=== PATIENT | female | born 1950 | race Caucasian/White ===

== ENCOUNTER → 2017-04-10 | Outpatient (CLI) | payer MEDICARE, OTHER ==
--- NOTE | 2017-04-10 16:28 | REPMRS ---
Patient History The patient states she has not had a clinical breast exam in over a year. Patient is postmenopausal. No known family history of cancer. Benign excisional biopsy of the left breast. Took unspecified hormones for 10 years. Digital Woman Screen Mammo: April 10, 2017 - Exam #: [id number] Bilateral CC and MLO view(s) were taken. Technologist: Crista Small, Technologist Prior study comparison: April 09, 2016, digital woman screen mammo performed at [facility]. March 27, 2015, digital woman screen mammo performed at [facility]. March 23, 2014, bilateral bilat screen digital mammo, performed at [facility] ([facility]). FINDINGS: There are scattered fibroglandular densities. There has been no change in the appearance of the mammogram from the prior studies. There is a mild amount of scattered fibroglandular density which is fairly symmetric. There is no interval development of dominant mass, architectural distortion, or clustered microcalcification suggestive of malignancy. ASSESSMENT: BI-RADS/ACR category 1 mammogram. Negative. Recommendation Routine screening mammogram in 1 year (for women over age 40). This mammogram was interpreted with the aid of an FDA-approved computer-aided dectection system. Electronically Signed By: James Myers MD 04/10/17 [id number]
== END ==
LOC: M WHC 14:57
PROVIDERS: ATTEND Family Medicine
DX: Z12.31 Encounter for screening mammogram for malignant neoplasm of breast (principal); Z78.0 Asymptomatic menopausal state; Z92.23 Personal history of estrogen therapy

== ENCOUNTER → 2017-12-18 | Outpatient (REF) | payer MEDICARE, OTHER | LOC: M LAB REF 13:04 | DX: N76.0 Acute vaginitis (principal) | CPT/HCPCS: 87077 ==

== ENCOUNTER → 2020-07-04 | Outpatient (CLI) | payer MEDICARE, OTHER ==
[~2020-07-04] MED LIST: ATOR1TAB19 PO; CALCCAP4 PO; CYAN100049 PO; GNP200TA4 PO; SERT25TA21 PO
[2020-07-04 14:23] LABS: BASO % 0.3 % (0.0-1.0); EOS # 0.1 10^3/uL (0.0-0.5); EOS % 0.9 % (0.0-3.0); HEMATOCRIT 41.6 % (36.0-47.0); HEMOGLOBIN 13.4 g/dl (12.0-15.5); LYMPH # 1.1 10^3/uL (1.5-5.0); LYMPH % 12.2 % (24.0-44.0); MEAN CORPUSCULAR HEMOGLOBIN 30.5 pg (27.0-33.0); MEAN CORPUSCULAR HGB CONC 32.2 g/dl (32.0-36.5); MEAN CORPUSCULAR VOLUME 94.5 fl (80.0-96.0); MONO # 0.6 10^3/uL (0.0-0.8); MONO % 6.4 % (0.0-5.0); NEUTROPHILS # 7.3 10^3/uL (1.5-8.5); NEUTROPHILS % 80.1 % (36.0-66.0); PLATELET COUNT, AUTOMATED 244 10^3/uL (150-450); WHITE BLOOD COUNT 9.1 10^3/uL (4.0-10.0)
[2020-07-04 14:48] LABS: ALBUMIN 3.8 GM/DL (3.2-5.2); ALT/SGPT 25 U/L (12-78); BILIRUBIN,TOTAL 0.4 MG/DL (0.2-1.0); BLOOD UREA NITROGEN 16 MG/DL (7-18); CARBON DIOXIDE LEVEL 33 MEQ/L (21-32); CHLORIDE LEVEL 106 MEQ/L (98-107); CREATININE FOR GFR 0.74 MG/DL (0.55-1.30); GLOMERULAR FILTRATION RATE > 60.0 (>45); GLUCOSE, FASTING 104 MG/DL (70-100); POTASSIUM SERUM 3.6 MEQ/L (3.5-5.1); SODIUM LEVEL 143 MEQ/L (136-145)
== END ==
LOC: M LAB 14:04
PROVIDERS: ATTEND Podiatrist
DX: M20.42 Other hammer toe(s) (acquired), left foot (principal); M79.672 Pain in left foot

== ENCOUNTER → 2020-07-08 | Outpatient (CLI) | payer MEDICARE, OTHER | LOC: M LABSMTC 09:10 | PROVIDERS: ATTEND Anesthesiology | DX: Z01.812 Encounter for preprocedural laboratory examination (principal); Z20.822 Contact with and (suspected) exposure to COVID-19 ==

== ENCOUNTER 2020-07-13 06:09 | Day surgery (SDC) | payer MEDICARE, OTHER ==
[~2020-07-13] VITALS: Ht 165.1 cm; Wt 78.5 kg
--- OUTSIDE RECORDS SUMMARY | 2020-07-13 06:17 | CCD | Continuity of Care Document ---
Author Author Lab Schedule, Janna Lindsey Organization Unknown Address [address] [place] [address] Phone Unavailable Care Team Providers Care Senior Technical Specialist Name Role Phone Toi Lopez MD AUTM [phone] Gastroenterology And Hepatology [facility] AUTM [phone] Ronnie Kam DO AUTM [phone] [facility]at[facility] Cos[facility] AUTM [phone] Problems Active Problems Provider Date Allergic rhinitis Onset: 06/23/2010 Chronic constipation Onset: 01/07/2009 Palpitations Onset: 01/03/2009 Mixed hyperlipidemia Onset: 10/02/2006 Benign paroxysmal positional vertigo Ons et: Gastroesophageal reflux disease Onset: 0 Osteopenia Onset: Osteoarthritis Onset: Insomnia Onset: Pure hypercholesterolemia Toi Lopez M.D. Onset: 2014 Degenerative joint disease involving multiple joints Toi Lopez M.D. Onset: 05/17/2015 Constipation Toi Lopez M.D. Onset: 05/17/2015 Anxiety state Toi Lopez M.D. Onset: 05/17/2015 Social History Type Date Description Comments Sex Unknown ETOH Use Occasionally consumes alcohol 1 glass of wine every 3 to 4 months Tobacco Use Start: Unknown Patient has never smoked Allergies, Adverse Reactions, Alerts Active Allergies Reaction Severity Comments Date Penicillin hives 11/15/2014 Medications Active Medications SIG Qnty Indications Ordering Provide r Date Proctosol HC 2.5% Cream apply topically three times a day as needed for hemorrhoids 85.05units Phylicia Lopez M.D. 01/11/2020 Triamcinolone Acetonide 0.5% Cream apply twice a day as directed to hands - do not overuse, risk of atropy. 45gm E78.00 Toi Lopez M.D. 12/12/2019 Zolpidem Tartrate 5mg Tablets 1/2 - 1 tab by mouth at at bedtime 30tabs Toi Lopez M.D. 12/2018 Estrace 0.1mg/GM Cream insert 1 gram vaginally every night 2 times a week (use same amount on vulva) 42.500gm Toi Lopez M.D. 11/29/2018 Calcium + D Chewtabs 1 po qd Toi Lopez M.D. 05/17/2015 Atorvastatin Calcium 10mg Tablets 1 by mouth every day 90tabs Toi Lopez M.D. 11/15/2014 Vitamin B-12 1000mcg Tablets Sub 1 by mouth every day Toi Lopez M.D. 11/15/2014 Miralax 3350NF Powder use 17grams daily as needed for constipation in juice or water. 30Oz Toi Lopez M.D. 11/15/2014 Zoloft 25mg Tablets 1 by mouth every day 90tabs H81.10 Toi Lopez M.D. Administration Of Flu Vaccine Inj ection Unknown Medications Administered in Office Medication SIG Qnty Indications Ordering Provider Date Administration Of Flu Vaccine Inj ection Toi Lopez M.D. 03/12/2017 Immunizations CPT Code Status Date Vaccine Lot # U-Flu Given 03/08/2020 Influenza,Unspecified U-Flu Given 03/30/2019 Influenza,Unspecified 87675 Given 11/02/2018 Shingrix Zoster Vaccine (HZV), Recombinant, Subunit, Adjuvanted 04558 Given 08/30/2018 Shingrix Zoster Vaccine (HZV), Recombinant, Subunit, Adjuvanted U-Pneum Given 06/10/2017 Pneumococcal,Unspecified 79801 Given 03/12/2017 Influenza Vaccin e Quadrivalent Preser/Antibiotic Free Im Use [id number] U-PneuC Given 06/08/2016 Prevnar 13 Q2037 Given 03/29/2015 Fluvirin Virus Vaccine 30131 01 87810 Given 03/07/2014 Influenza Virus Vaccine 28999 Given 03/03/2013 Influenza Virus Vaccine 83191 Given 09/01/2012 Adacel- Tetanus Diphtheria P ertussis (Age64 & Under) 03684 Given 02/25/2012 Influenza Virus Vaccine 18497 Given 11/10/2011 Zoster Vaccine 58419 Given 09/17/2011 Zostavax 67536 Given 01/30/2010 Influenza Virus Vaccine Vital Signs Date Vital Result Comment 06/18/2020 3:00pm BP Systolic 116 mmHg BP Diastolic 80 mmHg Heart Rate 78 /min Height 65 inches 5'5" Weight 170.00 lb BMI (Body Mass Index) 28.3 kg/m2 12/12/2019 8:58am BP Systolic 122 mmHg BP Diastolic 66 mmHg Heart Rate 74 /min Height 65 inches 5'5" Weight 170.38 lb O2 % BldC Oximetry 97 % RM Air BMI (Body Mass Index) 28.3 kg/m2 Results Test Acquired Date Facility Test Result H/L Range Note Comprehensive Chem Profile 06/13/2020 [facility] Cro: [place] [address] [phone] Glucose 84 mg/dL 74 - 99 1 BUN 14 mg/dL 7 - 18 Creatinine 0.8 mg/dL 0.6 - 1.3 Sodium 142 mEq/L 136 - 145 Potassium 4.1 mEq/L 3.5 - 5.1 Chloride 104 mEq/L 98 - 107 Carbon Dioxide 33 mEq/L High 21 - 32 Calcium 8.7 mg/dL 8.5 - 10.1 Alk. Phosphatase 133 mg/dL High 46 - 116 Total Bilirubin 0.8 mg/dL 0.2 - 1.0 Ast (Sgot) 19 U/L 15 - 37 Alt (SGPT) 21 U/L 12 - 78 Albumin 3.8 g/dL 3.4 - 5.0 Total Protein 7.2 g/dL 6.4 - 8.2 A/G Ratio 1.12 CALC 1.00 - 1.90 GFR >= 60 mL/min >60 GFR >= 60 mL/min >60 2 Lipid Profile 06/13/2020 [facility] Cro: [place] [address] [phone] Cholesterol 207 mg/dL High 131 - 200 Triglycerides 179 mg/dL High 30 - 150 HDL Cholesterol 60 mg/dL 35 - 60 LDL (Calculated) 111 CALC 50 - 159 1 100-125 mg/dL PRE-DIABET ES/FASTING >126 mg/dL DIABETES/FASTING 2 CHRONIC KIDNEY DISEASE STAGI NG PER NKF STAGE I & II GFR >= 60 NORMAL TO MILDLY DECREASED STAGE III GFR 30-59 MODERATELY DECREASED STAGE IV GFR 15-29 SEVERELY DECREASED STAGE V GFR <15 VERY LITTLE GFR LEFT ESRD GFR <15 ON SALVAGE INSPECTOR Procedures Date Code Description Status 04/17/2020 [id number] Mammogram Completed 06/13/2019 [id number] Bone Mineral Density Test Comple brenden 04/14/2019 [id number] Mammogram Completed 04/14/2018 [id number] Mammogram Completed 11/13/2017 [id number] Diabetic Retinal Eye Exam Comple brenden 04/10/2017 [id number] Mammogram Completed 04/09/2016 [id number] Bone Mineral Density Test Comple brenden 04/09/2016 [id number] Mammogram Completed 04/02/2015 [id number] Diabetic Retinal Eye Exam Comple brenden 03/27/2015 [id number] Mammogram Completed 03/13/2015 [id number] Colonoscopy Completed 03/23/2014 [id number] Bone Mineral Density Test Comple brenden 03/23/2014 [id number] Mammogram Completed Medical Devices Description No Information Available Encounters Description No Information Available Assessments Date Code Description Provider 06/18/2020 E78.00 Pure hypercholesterolemia, unspe cified Toi Lopez M.D. 06/18/2020 F41.9 Anxiety disorder, unspecified Daryl Lopez M.D. 06/18/2020 K21.9 Gastro-esophageal reflux disease without esophagitis Toi Loepz M.D. 06/18/2020 G47.00 Insomnia, unspecified Toi oropeza M.D. 06/18/2020 M15.0 Primary generalized (osteo)arthr itis Toi Lopez M.D. 06/18/2020 K59.00 Constipation, unspecified Toi Lopez M.D. 06/18/2020 J30.9 Allergic rhinitis, unspecified Manny Lopez M.D. 06/18/2020 K64.8 Other hemorrhoids Toi Lopez M.D. 06/13/2020 E78.00 Pure hypercholesterolemia, unspe cified Toi Lopez M.D. 06/13/2020 E78.00 Pure hypercholesterolemia, unspe cified Lab Schedule 05/17/2020 E78.00 Pure hypercholesterolemia, unspe cified Toi Lopez M.D. 05/17/2020 F41.9 Anxiety disorder, unspecified Daryl Lopez M.D. 05/17/2020 K21.9 Gastro-esophageal reflux disease without esophagitis Toi Lopez M.D. 05/17/2020 G47.00 Insomnia, unspecified Toi oropeza M.D. 04/09/2020 E78.00 Pure hypercholesterolemia, unspe cizaida Lopez M.D. 04/09/2020 F41.9 Anxiety disorder, unspecified Daryl Lopez M.D. 04/09/2020 K21.9 Gastro-esophageal reflux disease without esophagitis Toi Lopez M.D. 04/09/2020 G47.00 Insomnia, unspecified Toi oropeza M.D. 02/08/2020 E78.00 Pure hypercholesterolemia, davidpe cizaida Lopez M.D. 02/08/2020 F41.9 Anxiety disorder, unspecified Daryl Lopez M.D. 02/08/2020 K21.9 Gastro-esophageal reflux disease without esophagitis Toi Lopez M.D. 02/08/2020 M15.0 Primary generalized (osteo)arthr itmahi Lopez M.D. 12/28/2019 E78.00 Pure hypercholesterolemia, unspe cizaida Lopez M.D. 12/28/2019 F41.9 Anxiety disorder, unspecified Daryl Lopez M.D. 12/28/2019 K21.9 Gastro-esophageal reflux disease without esophagitis Toi Lopez M.D. 12/28/2019 M15.0 Primary generalized (osteo)arthr itmahi Lopez M.D. Plan of Treatment Future Appointment(s):* 12/14/2020 8:20 am - Lab Schedule at [facility] * 12/17/2020 9:30 am - [facility] 06/18/2020 - Toi Lopez M.D.* E78.00 Pure hypercholesterolemia, unspecified * F41.9 Anxiety disorder, unspecified * K21.9 Gastro-esophageal reflux disease without esophagitis * G47.00 Insomnia, unspecified * M15.0 Primary generalized (osteo)arthritis * K59.00 Constipation, unspecified * J30.9 Allergic rhinitis, unspecified * K64.8 Other hemorrhoids * * Comments:* 1. Hypercholesterolemia: Slightly increased cholesterol and TGs, otherwise good result on Lipitor at the present dose, will continue and monitor.2. Anxiety disorder: Has been doing well at current dose of Zoloft. Discussed about possible weaning off during spring or summer as it could be more stressful withdrawing during winter.3. GERD: Good control of heartburn with regular use of H2 atif and PPI as needed. We will continue to monitor.4. Insomnia: Only once a month use of Ambien, will continue to use as necessary.5. Primary generalized (osteo)arthritis: Aches in her hand appears to be arthritic pain. Regular exercises discussed. Patient is encouraged to take 2 Extra Strength Tylenol daily in the morning along with soaking her hands in warm water in the morning will help to ease her pain. We will monitor.6. Constipation: Continued good results with Miralax with very occasional flares of constipation, encouraged to drink more water. Happy with this and will continue.7. Allergic rhinitis: Education was done. Loratadine helps to improve her symptoms, will continue and monitor.8. Hemorrhoids: Stable with the use of Proctosol as needed, did flare up only at one occasion before Thanksgiving. We will monitor.9. Neck pain: Appears to muscular pain, education was done. She will let me know if her symptoms worsen. We will monitor.10. Increased liver function: Persistently elevated alkaline phosphatase otherwise liver functions are normal.Ongoing cares: We will obtain EKG on her way out for pre-op plans. Patient has an appointment for Covid-19 vaccine and will get it appropriately. I am going to see her again in 6 months with CMP, lipids and TSH;. If she has new problems or issues sooner she will let us know.Planned Surgery: Patient is scheduled for a very low risk toe surgery on July 13, [address] Vega and she appears optimized for this surgery. Functional Status Description No Information Available Mental Status Description No Information Available Referrals Description No Information Available
--- OUTSIDE RECORDS SUMMARY | 2020-07-13 06:17 | CCD | Continuity of Care Document ---
Author Author Janna RAMIREZ M.D. Organization Unknown Address [address] [facility] [address] [place] [address] Phone [phone] Care Team Providers Care Puller Over Name Role Phone Toi Ramirez MD AUTM [phone] Gastroenterology And Hepatology [facility] AUTM [phone] Ronnie Kam DO AUTM [phone] [facility] Dermatology [facility] Cos[facility] AUTM [phone] Problems Active Problems Provider Date Allergic rhinitis Onset: 06/23/2010 Chronic constipation Onset: 01/07/2009 Palpitations Onset: 01/03/2009 Mixed hyperlipidemia Onset: 10/02/2006 Benign paroxysmal positional vertigo Ons et: Gastroesophageal reflux disease Onset: 0 Osteopenia Onset: Osteoarthritis Onset: Insomnia Onset: Pure hypercholesterolemia Toi Ramirez M.D. Onset: 2014 Degenerative joint disease involving multiple joints Toi Ramirez M.D. Onset: 05/17/2015 Constipation Toi Ramirez M.D. Onset: 05/17/2015 Anxiety state Toi Ramirez M.D. Onset: 05/17/2015 Social History Type Date [...] day as needed for hemorrhoids 85.05units Phylicia Ramirez M.D. 01/11/2020 Triamcinolone Acetonide 0.5% Cream apply twice a day as directed to hands - do not overuse, risk of atropy. 45gm E78.00 Toi Ramirez M.D. 12/12/2019 Zolpidem Tartrate 5mg Tablets 1/2 - 1 tab by mouth at at bedtime 30tabs Toi Ramirez M.D. 12/2018 Estrace 0.1mg/GM Cream insert 1 gram vaginally every night 2 times a week (use same amount on vulva) 42.500gm Toi Ramirez M.D. 11/29/2018 Calcium + D Chewtabs 1 po qd Toi Ramirez M.D. 05/17/2015 Atorvastatin Calcium 10mg Tablets 1 by mouth every day 90tabs Toi Ramirez M.D. 11/15/2014 Vitamin B-12 1000mcg Tablets Sub 1 by mouth every day Toi Ramirez M.D. 11/15/2014 Miralax 3350NF Powder use 17grams daily as needed for constipation in juice or water. 30Oz Toi Ramirez M.D. 11/15/2014 Zoloft 25mg Tablets 1 by mouth every day 90tabs H81.10 Toi Ramirez M.D. Administration Of Flu Vaccine Inj ection Unknown Medications Administered in Office Medication SIG Qnty Indications Ordering Provider Date Administration Of Flu Vaccine Inj ection Toi Ramirez M.D. 03/12/2017 Immunizations CPT Code Status Date Vaccine Lot # U-Flu Given 03/08/2020 Influenza,Unspecified U-Flu Given 03/30/2019 Influenza,Unspecified 05200 Given 11/02/2018 Shingrix Zoster Vaccine (HZV), Recombinant, Subunit, Adjuvanted 26540 Given 08/30/2018 Shingrix Zoster Vaccine (HZV), Recombinant, Subunit, Adjuvanted U-Pneum Given 06/10/2017 Pneumococcal,Unspecified 97569 Given 03/12/2017 Influenza Vaccin e Quadrivalent Preser/Antibiotic Free Im Use [id number] U-PneuC Given 06/08/2016 Prevnar 13 Q2037 Given 03/29/2015 Fluvirin Virus Vaccine 26114 01 55549 Given 03/07/2014 Influenza Virus Vaccine 89292 Given 03/03/2013 Influenza Virus Vaccine 41319 Given 09/01/2012 Adacel- Tetanus Diphtheria P ertussis (Age64 & Under) 59129 Given 02/25/2012 Influenza Virus Vaccine 29946 Given 11/10/2011 Zoster Vaccine 96381 Given 09/17/2011 Zostavax 43832 Given 01/30/2010 Influenza Virus Vaccine Vital Signs [...] H/L Range Note Comprehensive Chem Profile 06/13/2020 [facility], Interventional Radiology Technologist: Dr [address] [place], [place] [id number] [phone] Glucose 84 mg/dL 74 - 99 1 [...] 60 mL/min >60 2 Lipid Profile 06/13/2020 [facility] , Interventional Radiology Technologist: [place] [address] [phone] Cholesterol 207 mg/dL High 131 - 200 [...] LITTLE GFR LEFT ESRD GFR <15 ON MARKING DEVICES [employer]SEMBLER Procedures Date Code Description Status 06/18/2020 72094 EKG/Interpretation & Report Comp leted 04/17/2020 [id number] Mammogram Completed 06/13/2019 [id number] Bone Mineral Density Test Comple brenden 04/14/2019 [id number] Mammogram Completed 04/14/2018 [id number] Mammogram Completed 11/13/2017 [id number] Diabetic Retinal Eye Exam Comple brenden 04/10/2017 [id number] Mammogram Completed 04/09/2016 [id number] Bone Mineral Density Test Comple brenden 04/09/2016 [id number] Mammogram Completed 04/02/2015 [id number] Diabetic Retinal Eye Exam Comple brenden 03/27/2015 [id number] Mammogram Completed 03/13/2015 [id number] Colonoscopy Completed 03/23/2014 [id number] Bone Mineral Density Test Comple brenden 03/23/2014 [id number] Mammogram Completed Medical Devices Description No Information Available Encounters Type Date Location Provider Dx Diagnosis Office Visit 06/18/2020 3:00p [facility] Toi Ramirez M.D. E78.00 Pure hypercholesterolemia, unspecified F41.9 Anxiety disorder, unspecifie d K21.9 Gastro-esophageal reflux dis ease without esophagitis G47.00 Insomnia, unspecified M15.0 Primary generalized (osteo)a rthritis K59.00 Constipation, unspecified J30.9 Allergic rhinitis, unspecifi ed K64.8 Other hemorrhoids Assessments Date Code Description Provider 06/18/2020 E78.00 Pure hypercholesterolemia, unspe cified Toi Ramirez M.D. 06/18/2020 F41.9 Anxiety disorder, unspecified Daryl Ramirez M.D. 06/18/2020 K21.9 Gastro-esophageal reflux disease without esophagitis Toi Ramirez M.D. 06/18/2020 G47.00 Insomnia, unspecified Toi oropeza M.D. 06/18/2020 M15.0 Primary generalized (osteo)arthr itis Toi Ramirez M.D. 06/18/2020 K59.00 Constipation, unspecified Toi Ramirez M.D. 06/18/2020 J30.9 Allergic rhinitis, unspecified Manny Ramirez M.D. 06/18/2020 K64.8 Other hemorrhoids Toi Ramirez M.D. 06/13/2020 E78.00 Pure hypercholesterolemia, unspe cified Toi Ramirez M.D. 06/13/2020 E78.00 Pure hypercholesterolemia, unspe cified Lab Schedule 05/17/2020 E78.00 Pure hypercholesterolemia, unspe cified Toi Ramirez M.D. 05/17/2020 F41.9 Anxiety disorder, unspecified Daryl Ramirez M.D. 05/17/2020 K21.9 Gastro-esophageal reflux disease without esophagitis Toi Ramirez M.D. 05/17/2020 G47.00 Insomnia, unspecified Toi oropeza M.D. 04/09/2020 E78.00 Pure hypercholesterolemia, unspe cizaida Ramirez M.D. 04/09/2020 F41.9 Anxiety disorder, unspecified Daryl Ramirez M.D. 04/09/2020 K21.9 Gastro-esophageal reflux disease without esophagitis Toi Ramirez M.D. 04/09/2020 G47.00 Insomnia, unspecified Toi oropeza M.D. 02/08/2020 E78.00 Pure hypercholesterolemia, unspe cified Toi Ramirez M.D. 02/08/2020 F41.9 Anxiety disorder, unspecified Daryl Ramirez M.D. 02/08/2020 K21.9 Gastro-esophageal reflux disease without esophagitis Toi Ramirez M.D. 02/08/2020 M15.0 Primary generalized (osteo)arthr itis César Poole.D. 12/28/2019 E78.00 Pure hypercholesterolemia, unspe cified Toi Ramirez M.D. 12/28/2019 F41.9 Anxiety disorder, unspecified Daryl Ramirez M.D. 12/28/2019 K21.9 Gastro-esophageal reflux disease without esophagitis Toi Ramirez M.D. 12/28/2019 M15.0 Primary generalized (osteo)arthr ulisses Ramirez M.D. Plan of Treatment Future Appointment(s):* 12/14/2020 8:20 am - Lab Schedule at [facility] * 12/17/2020 9:30 am - Toi Ramirez M.D. at [facility] 06/18/2020 - Toi Ramirez M.D.* E78.00 Pure hypercholesterolemia, unspecified * F41.9 [...]
--- OUTSIDE RECORDS SUMMARY | 2020-07-13 06:17 | CCD | Continuity of Care Document ---
Author Organization Unknown Address Unknown Phone Unavailable Care Team Providers Care Wax Bleacher Name Role Phone Toi oLpez MD AUTM [phone] Gastroenterology And Hepat[facility] AUTM [phone] Ronnie Kam DO AUTM [phone] [facility] AUTM Problems Active Problems Provider Date Allergic rhinitis [...] Given 03/08/2020 Influenza,Unspecified U-Flu Given 03/30/2019 Influenza,Unspecified 19587 Given 11/02/2018 Shingrix Zoster Vaccine (HZV), Recombinant, Subunit, Adjuvanted 68549 Given 08/30/2018 Shingrix Zoster Vaccine (HZV), Recombinant, Subunit, Adjuvanted U-Pneum Given 06/10/2017 Pneumococcal,Unspecified 83729 Given 03/12/2017 Influenza Vaccin e Quadrivalent Preser/Antibiotic Free Im Use 060971 U-PneuC Given 06/08/2016 Prevnar 13 Q2037 Given 03/29/2015 Fluvirin Virus Vaccine 54311 01 52800 Given 03/07/2014 Influenza Virus Vaccine 54159 Given 03/03/2013 Influenza Virus Vaccine 77576 Given 09/01/2012 Adacel- Tetanus Diphtheria P ertussis (Age64 & Under) 70610 Given 02/25/2012 Influenza Virus Vaccine 23309 Given 11/10/2011 Zoster Vaccine 15656 Given 09/17/2011 Zostavax 48664 Given 01/30/2010 Influenza Virus Vaccine Vital Signs [...] Date Facility Test Result H/L Range Note CBC With Differential 07/04/2020 [place] [id number] [phone] White Blood Count 9.1 10 Normal 4.0-10.0 Red Blood Count 4.40 10 Normal 4.00-5.40 Hemoglobin 13.4 g/dL Normal 12.0-15.5 Hematocrit 41.6 % Normal 36.0-47.0 Mean Corpuscular Volume 94.5 fl Normal 80.0-96.0 Mean Corpuscular Hemoglobin 30.5 pg Normal 27.0-33.0 Mean Corpuscular HGB Conc 32.2 g/dL Normal 32.0-36.5 Red Cell Distribution Width 13.8 % Normal 11.5-14.5 Platelet Count, Automated 244 10 Normal 150-450 Neutrophils % 80.1 % High 36.0-66.0 Lymph % 12.2 % Low 24.0-44.0 Coke % 6.4 % High 0.0-5.0 Eos % 0.9 % Normal 0.0-3.0 Baso % 0.3 % Normal 0.0-1.0 Immature Granulocyte % 0.1 % Normal 0-3.0 Nucleated Red Blood Cell % 0.0 % Normal 0-0 Neutrophils # 7.3 10 Normal 1.5-8.5 Lymph # 1.1 10 Low 1.5-5.0 Coke # 0.6 10 Normal 0.0-0.8 Eos # 0.1 10 Normal 0.0-0.5 Baso # 0.0 10 Normal 0.0-0.2 Comprehensive Metabolic Profil 07/04/2020 [facility] [address], [place] [id number] [phone] Glucose, Fasting 104 mg/dL High 70-100 Blood Urea Nitrogen 16 mg/dL Normal 7-18 Creatinine For GFR 0.74 mg/dL Normal 0.55-1.30 Glomerular Filtration Rate > 60.0 Normal >45 1 Sodium Level 143 mEq/L Normal 136-145 Potassium Serum 3.6 mEq/L Normal 3.5-5.1 Chloride Level 106 mEq/L Normal 98-107 Carbon Dioxide Level 33 mEq/L High 21-32 Anion Gap 4 mEq/L Low 8-16 Calcium Level 9.0 mg/dL Normal 8.8-10.2 Ast/Sgot 18 U/L Normal 7-37 Alt/SGPT 25 U/L Normal 12-78 Alkaline Phosphatase 130 U/L High 45-117 Bilirubin,Total 0.4 mg/dL Normal 0.2-1.0 Total Protein 7.0 GM/DL Normal 6.4-8.2 Albumin 3.8 GM/DL Normal 3.2-5.2 Albumin/Globulin Ratio 1.2 Normal 1.2-2.2 Comprehensive Chem Profile 06/13/2020 [facility] Welding Machine Operator: [place] [address] [phone] Glucose 84 mg/dL 74 - 99 2 BUN 14 mg/dL 7 - 18 Creatinine [...] mL/min >60 GFR >= 60 mL/min >60 3 Lipid Profile 06/13/2020 [facility] Welding Machine Operator: [place] [address] [phone] Cholesterol 207 mg/dL High 131 - 200 Triglycerides 179 mg/dL High 30 - 150 HDL Cholesterol 60 mg/dL 35 - 60 LDL (Calculated) 111 CALC 50 - 159 1 Units are mL/min/1.73 m2 Chronic Kidney Disease Staging per NKF: Stage I & II GFR >=60 Normal to Mildly Decreased Stage III GFR 30-59 Moderately Decreased Stage IV GFR 15-29 Severely Decreased Stage V GFR <15 Very Little GFR Left ESRD GFR <15 on HOPS FARMWORKER 2 100-125 mg/dL PRE-DIABET ES/FASTING >126 mg/dL DIABETES/FASTING 3 CHRONIC KIDNEY DISEASE STAGI NG PER NKF STAGE I & II GFR >= 60 NORMAL TO MILDLY DECREASED STAGE III GFR 30-59 MODERATELY DECREASED STAGE IV GFR 15-29 SEVERELY DECREASED STAGE V GFR <15 VERY LITTLE GFR LEFT ESRD GFR <15 ON [employer] Procedures Date Code Description Status 06/18/2020 78289 EKG/Interpretation & Report Comp leted 04/17/2020 [id number] Mammogram Completed 06/13/2019 [id number] Bone Mineral Density Test [facility] [place] 04/14/2019 [id number] Mammogram Completed 04/14/2018 [id number] Mammogram Completed 11/13/2017 [id number] Diabetic Retinal Eye Exam [facility] 04/10/2017 [id number] Mammogram Completed 04/09/2016 [id number] Bone Mineral Density Test Comple [facility] 04/09/2016 [id number] Mammogram Completed 04/02/2015 [id number] Diabetic Retinal Eye Exam Comple [facility] 03/27/2015 [id number] Mammogram Completed 03/13/2015 [id number] Colonoscopy Completed 03/23/2014 [id number] Bone Mineral Density Test Comple [facility] 03/23/2014 [id number] Mammogram Completed Medical Devices Description No Information Available Encounters Type Date Location Provider Dx Diagnosis Office Visit 06/18/2020 3:00p [facility] M.[facility] E78.00 Pure hypercholesterolemia, unspecified F41.9 Anxiety [...] reflux disease without esophagitis Toi Lopez M.D. 06/18/2020 G47.00 Insomnia, unspecified Toi oropeza [...] 02/08/2020 E78.00 Pure hypercholesterolemia, unspe cified Toi Lopez M.D. 02/08/2020 F41.9 Anxiety disorder, unspecified Daryl Lopez M.D. 02/08/2020 K21.9 Gastro-esophageal reflux disease without esophagitis Toi Lopez M.D. 02/08/2020 M15.0 Primary generalized (osteo)arthr itis Toi Lopez M.D. Plan of Treatment Future Appointment(s):* 12/14/2020 8:20 am - Lab Schedule at [facility] * 12/17/2020 9:30 am - Toi Lopez M.D. at [facility] 06/18/2020 - Toi Lopez M.D.* E78.00 Pure [...]
--- OUTSIDE RECORDS SUMMARY | 2020-07-13 06:17 | CCD | Continuity of Care Document ---
Author Author Janna RAMIREZ M.D. Organization Unknown Address [address] [facility] [address] [place] [address] Phone [phone] Care Team Providers Care Numerical Tool Programmer Name Role Phone Toi Ramirez MD AUTM [phone] Gastroenterology And Hepatology [facility] AUTM [phone] Ronnie Kam DO AUTM [phone] Pending Sale To [facility] AUTM Problems Active [...] Ramirez M.D. Onset: 05/17/2015 Anxiety state Toi Raimrez M.D. Onset: 05/17/2015 Social History Type Date [...] Given 03/08/2020 Influenza,Unspecified U-Flu Given 03/30/2019 Influenza,Unspecified 97462 Given 11/02/2018 Shingrix Zoster Vaccine (HZV), Recombinant, Subunit, Adjuvanted 69856 Given 08/30/2018 Shingrix Zoster Vaccine (HZV), Recombinant, Subunit, Adjuvanted U-Pneum Given 06/10/2017 Pneumococcal,Unspecified 05214 Given 03/12/2017 Influenza Vaccin e Quadrivalent Preser/Antibiotic Free Im Use 557520 U-PneuC Given 06/08/2016 Prevnar 13 Q2037 Given 03/29/2015 Fluvirin Virus Vaccine 31417 01 49335 Given 03/07/2014 Influenza Virus Vaccine 84696 Given 03/03/2013 Influenza Virus Vaccine 50498 Given 09/01/2012 Adacel- Tetanus Diphtheria P ertussis (Age64 & Under) 04030 Given 02/25/2012 Influenza Virus Vaccine 30619 Given 11/10/2011 Zoster Vaccine 37485 Given 09/17/2011 Zostavax 13981 Given 01/30/2010 Influenza Virus Vaccine Vital Signs [...] H/L Range Note Comprehensive Chem Profile 06/13/2020 [facility] Insurance Assessor: [address], [place] [id number] [phone] Glucose 84 mg/dL 74 - 99 1 [...] 60 mL/min >60 2 Lipid Profile 06/13/2020 [facility] , Health Insurance Assessor: [place] [address] [phone] Cholesterol 207 mg/dL High 131 - 200 [...] LITTLE GFR LEFT ESRD GFR <15 ON [facility]YCHOLOGY CLINICIAN Procedures Date Code Description Status 04/17/2020 [id number] Mammogram Completed 06/13/2019 [id number] Bone Mineral Density Test Comple [place] 04/14/2019 [id number] Mammogram Completed 04/14/2018 [id number] Mammogram Completed 11/13/2017 [id number] Diabetic Retinal Eye Exam [facility] [place] 04/10/2017 [id number] Mammogram Completed 04/09/2016 [id number] Bone Mineral Density Test Comple [place] 04/09/2016 [id number] Mammogram Completed 04/02/2015 [id number] Diabetic Retinal Eye Exam [facility] [place] 03/27/2015 [id number] Mammogram Completed 03/13/2015 [id number] Colonoscopy Completed 03/23/2014 [id number] Bone Mineral Density Test Comple [place] 03/23/2014 [id number] Mammogram Completed Medical Devices Description No Information Available Encounters Description No Information Available Assessments Date Code Description Provider 05/17/2020 E78.00 Pure hypercholesterolemia, unspe cified Toi Ramirez M.D. 05/17/2020 F41.9 Anxiety disorder, unspecified Daryl Ramirez M.D. 05/17/2020 K21.9 Gastro-esophageal reflux disease without esophagitis Toi Ramirez M.D. 05/17/2020 G47.00 Insomnia, unspecified Toi oropeza M.D. 04/09/2020 E78.00 Pure hypercholesterolemia, unspe cified Toi Ramirez M.D. 04/09/2020 F41.9 Anxiety disorder, unspecified Daryl Ramirez M.D. 04/09/2020 K21.9 Gastro-esophageal reflux disease without esophagitis Toi Ramirez M.D. 04/09/2020 G47.00 Insomnia, unspecified Toi oropeza M.D. 02/08/2020 E78.00 Pure hypercholesterolemia, unspe cified Toi Ramirez M.D. 02/08/2020 F41.9 Anxiety disorder, unspecified Daryl Ramirez M.D. 02/08/2020 K21.9 Gastro-esophageal reflux disease without esophagitis Toi Ramirez M.D. 02/08/2020 M15.0 Primary generalized (osteo)arthr itis Toi Ramirez M.D. 12/28/2019 E78.00 Pure hypercholesterolemia, unspe cified Toi Ramirez M.D. 12/28/2019 F41.9 Anxiety disorder, unspecified Daryl Ramirez M.D. 12/28/2019 K21.9 Gastro-esophageal reflux disease without esophagitis Toi Ramirez M.D. 12/28/2019 M15.0 Primary generalized (osteo)arthr ulisses Ramirez M.D. Plan of Treatment No Information Available Functional Status Description No Information Available Mental Status Description No Information Available Referrals Description No Information Available
--- OUTSIDE RECORDS SUMMARY | 2020-07-13 06:18 | CCD | Continuity of Care Document ---
Author Author Lab Schedule, Janna Lindsey Organization Unknown Address [address] [place] [address] Phone Unavailable Care Team Providers Care Pump Servicer Helper Name Role Phone Toi Lopez MD AUTM [phone] Gastroenterology And Hepatology [facility] AUTM [phone] Ronnie Kam DO AUTM [phone] [facility] AUTM Problems Active [...] Given 03/08/2020 Influenza,Unspecified U-Flu Given 03/30/2019 Influenza,Unspecified 37027 Given 11/02/2018 Shingrix Zoster Vaccine (HZV), Recombinant, Subunit, Adjuvanted 53071 Given 08/30/2018 Shingrix Zoster Vaccine (HZV), Recombinant, Subunit, Adjuvanted U-Pneum Given 06/10/2017 Pneumococcal,Unspecified 03562 Given 03/12/2017 Influenza Vaccin e Quadrivalent Preser/Antibiotic Free Im Use 639389 U-PneuC Given 06/08/2016 Prevnar 13 Q2037 Given 03/29/2015 Fluvirin Virus Vaccine 18545 01 67683 Given 03/07/2014 Influenza Virus Vaccine 89240 Given 03/03/2013 Influenza Virus Vaccine 95972 Given 09/01/2012 Adacel- Tetanus Diphtheria P ertussis (Age64 & Under) 49952 Given 02/25/2012 Influenza Virus Vaccine 14577 Given 11/10/2011 Zoster Vaccine 92702 Given 09/17/2011 Zostavax 16859 Given 01/30/2010 Influenza Virus Vaccine Vital Signs Date Vital Result Comment 12/12/2019 8:58am BP Systolic 122 mmHg BP Diastolic 66 mmHg Heart Rate 74 /min Height 65 inches 5'5" Weight 170.38 lb O2 % BldC Oximetry 97 % RM Air BMI (Body Mass Index) 28.3 kg/m2 07/28/2019 10:27am BP Systolic 130 mmHg RT Arm BP Diastolic 80 mmHg RT Arm Heart Rate 88 /min Height 65 inches 5'5" Weight 172.00 lb BMI (Body Mass Index) 28.6 kg/m2 Results Description No Information Available Procedures Date Code Description Status 04/17/2020 [id number] Mammogram Completed 06/13/2019 [id number] Bone Mineral Density Test Comple [place] 04/14/2019 [id number] Mammogram Completed 04/14/2018 [id number] Mammogram Completed 11/13/2017 [id number] Diabetic Retinal Eye Exam Comple [place] 04/10/2017 [id number] Mammogram Completed 04/09/2016 [id number] Bone Mineral Density Test Comple [place] 04/09/2016 [id number] Mammogram Completed 04/02/2015 [id number] Diabetic Retinal Eye Exam Comple [place] 03/27/2015 [id number] Mammogram Completed 03/13/2015 [id number] Colonoscopy Completed 03/23/2014 [id number] Bone Mineral Density Test Comple [place] 03/23/2014 [id number] Mammogram Completed Medical Devices Description No Information Available Encounters Description No Information Available Assessments Date Code Description Provider 04/09/2020 E78.00 Pure hypercholesterolemia, unspe cified Toi Lopez M.D. 04/09/2020 F41.9 Anxiety disorder, unspecified [...] Lopez M.D. 12/28/2019 E78.00 Pure hypercholesterolemia, unspe cified Toi Lopez M.D. 12/28/2019 F41.9 Anxiety disorder, unspecified Daryl Lopez M.D. 12/28/2019 K21.9 Gastro-esophageal reflux disease without esophagitis Toi Lopez M.D. 12/28/2019 M15.0 Primary generalized (osteo)arthr ulisses Lopez M.D. Plan of Treatment Future Appointment(s):* 06/14/2020 8:30 am - Toi [facility] M[facility] at [facility] 12/12/2019 - Toi Lopez M.D.* E78.00 Pure hypercholesterolemia, unspecified * F41.9 Anxiety disorder, unspecified * K21.9 Gastro-esophageal reflux disease without esophagitis * M15.0 Primary generalized (osteo)arthritis* New Medication:* Triamcinolone Acetonide 0.5 % Functional Status Description No Information Available Mental Status Description No Information Available Referrals Description No Information Available
--- OUTSIDE RECORDS SUMMARY | 2020-07-13 06:18 | CCD | Continuity of Care Document ---
Author Author Lab Schedule, Janna Lindsey Organization Unknown Address [address] [place] [address] Phone Unavailable Care Team Providers Care Utility Mechanic Name Role Phone Toi Lopez MD AUTM [phone] Gastroenterology And Hepatology [facility] AUTM [phone] Ronnie Kam DO AUTM [phone] [facility] AUTM Problems Active [...] Given 03/08/2020 Influenza,Unspecified U-Flu Given 03/30/2019 Influenza,Unspecified 29092 Given 11/02/2018 Shingrix Zoster Vaccine (HZV), Recombinant, Subunit, Adjuvanted 17711 Given 08/30/2018 Shingrix Zoster Vaccine (HZV), Recombinant, Subunit, Adjuvanted U-Pneum Given 06/10/2017 Pneumococcal,Unspecified 32145 Given 03/12/2017 Influenza Vaccin e Quadrivalent Preser/Antibiotic Free Im Use 137526 U-PneuC Given 06/08/2016 Prevnar 13 Q2037 Given 03/29/2015 Fluvirin Virus Vaccine 23705 01 01142 Given 03/07/2014 Influenza Virus Vaccine 21009 Given 03/03/2013 Influenza Virus Vaccine 97636 Given 09/01/2012 Adacel- Tetanus Diphtheria P ertussis (Age64 & Under) 01830 Given 02/25/2012 Influenza Virus Vaccine 84275 Given 11/10/2011 Zoster Vaccine 36338 Given 09/17/2011 Zostavax 85744 Given 01/30/2010 Influenza Virus Vaccine Vital Signs [...] BMI (Body Mass Index) 28.6 kg/m2 Results Test Acquired Date Facility Test Result H/L Range Note Comprehensive Chem Profile 06/13/2020 [facility] Propulsion Engineer: [place] [address] [phone] Glucose 84 mg/dL 74 - 99 1 [...] 60 mL/min >60 2 Lipid Profile 06/13/2020 [facility] Propulsion Engineer: [place] [address] [phone] Cholesterol 207 mg/dL High 131 - 200 [...] LITTLE GFR LEFT ESRD GFR <15 ON [employer] Procedures Date Code Description Status 04/17/2020 [id number] Mammogram Completed 06/13/2019 [id number] Bone Mineral Density Test Comple [place] 04/14/2019 [id number] Mammogram Completed 04/14/2018 [id number] Mammogram Completed 11/13/2017 [id number] Diabetic Retinal Eye Exam Comple [facility] 04/10/2017 [id number] Mammogram Completed 04/09/2016 [id number] Bone Mineral Density Test Comple [place] 04/09/2016 [id number] Mammogram Completed 04/02/2015 [id number] Diabetic Retinal Eye Exam Comple [place] 03/27/2015 [id number] Mammogram Completed 03/13/2015 [id number] Colonoscopy Completed 03/23/2014 [id number] Bone Mineral Density Test Comple [place] 03/23/2014 [id number] Mammogram Completed Medical Devices Description No Information [...] M.D. 04/09/2020 F41.9 Anxiety disorder, unspecified Daryl Lpoez M.D. 04/09/2020 K21.9 Gastro-esophageal reflux disease without esophagitis Toi Lopez M.D. 04/09/2020 G47.00 Insomnia, unspecified Toi oropeza M.D. 02/08/2020 E78.00 Pure hypercholesterolemia, unspe cified Toi Lopez M.D. 02/08/2020 F41.9 Anxiety disorder, unspecified Daryl Lopez M.D. 02/08/2020 K21.9 Gastro-esophageal reflux disease without esophagitis Toi Lopez M.D. 02/08/2020 M15.0 Primary generalized (osteo)arthr itis Toi Lopez M.D. 12/28/2019 E78.00 Pure hypercholesterolemia, unspe cified Toi Lopez M.D. 12/28/2019 F41.9 Anxiety disorder, unspecified Daryl Lopez M.D. 12/28/2019 K21.9 Gastro-esophageal reflux disease without esophagitis Toi Lopez M.D. 12/28/2019 M15.0 Primary generalized (osteo)arthr ulisses Lopez M.D. Plan of Treatment Future Appointment(s):* 06/14/2020 8:30 am - [facility] 12/12/2019 - Toi Lopez M.D.* E78.00 Pure hypercholesterolemia, unspecified * F41.9 Anxiety disorder, unspecified * K21.9 Gastro-esophageal reflux disease without esophagitis * M15.0 Primary generalized (osteo)arthritis* New Medication:* Triamcinolone Acetonide 0.5 % Functional Status Description No Information Available Mental Status Description No Information Available Referrals Description No Information Available
--- OUTSIDE RECORDS SUMMARY | 2020-07-13 06:18 | CCD ---
Author Author [facility] Organization [facility] Address Unknown Phone Unavailable Care Team Providers Care Office Administrative Assistant Name Role Phone AnjelCésar Crista GATHERING MACHINE SETTER Unavailable Unavailable Anjel, M Crista GATHERING MACHINE SETTER Unavailable Unavailable Anjel, M Crista GATHERING MACHINE SETTER Unavailable Unavailable Anjel, M Crista GATHERING MACHINE SETTER Unavailable Unavailable Anjel, M Crista GATHERING MACHINE SETTER Unavailable Unavailable Anjel, M Crista GATHERING MACHINE SETTER Unavailable Unavailable Anjel, M Crista GATHERING MACHINE SETTER Unavailable Unavailable Anjel, M Crista GATHERING MACHINE SETTER Unavailable Unavailable Anjel, M Crista GATHERING MACHINE SETTER Unavailable Unavailable Anjel, M Crista GATHERING MACHINE SETTER Unavailable Unavailable Anjel, M Crista GATHERING MACHINE SETTER Unavailable Unavailable Anjel, M Crista GATHERING MACHINE SETTER Unavailable Unavailable Anjel, M Crista GATHERING MACHINE SETTER Unavailable Unavailable Anjel, M Crista GATHERING MACHINE SETTER Unavailable Unavailable Anjel, M Crista GATHERING MACHINE SETTER Unavailable Unavailable Anjel, M Crista GATHERING MACHINE SETTER Unavailable Unavailable Anjel, M Crista GATHERING MACHINE SETTER Unavailable Unavailable Anjel, M Crista GATHERING MACHINE SETTER Unavailable Unavailable Anjel, M Crista GATHERING MACHINE SETTER Unavailable Unavailable Anjel, M Crista GATHERING MACHINE SETTER Unavailable Unavailable Anjel, M Crista GATHERING MACHINE SETTER Unavailable Unavailable Anjel, M Crista GATHERING MACHINE SETTER Unavailable Unavailable Anjel, M Crista GATHERING MACHINE SETTER Unavailable Unavailable Anjel, M Crista GATHERING MACHINE SETTER Unavailable Unavailable Anjel, M Crista GATHERING MACHINE SETTER Unavailable Unavailable Anjel, M Crista GATHERING MACHINE SETTER Unavailable Unavailable Anjel, M Crista GATHERING MACHINE SETTER Unavailable Unavailable Anjel, M Crista GATHERING MACHINE SETTER Unavailable Unavailable Anjel, M Crista GATHERING MACHINE SETTER Unavailable Unavailable Anjel, M Crista GATHERING MACHINE SETTER Unavailable Unavailable Anjel, M Crista GATHERING MACHINE SETTER Unavailable Unavailable Anjel, M Crista GATHERING MACHINE SETTER Unavailable Unavailable Anjel, M Crista GATHERING MACHINE SETTER Unavailable Unavailable Anjel, M Crista GATHERING MACHINE SETTER Unavailable Unavailable Anjel, M Crista GATHERING MACHINE SETTER Unavailable Unavailable Anjel, M Crista GATHERING MACHINE SETTER Unavailable Unavailable Anjel, M Crista GATHERING MACHINE SETTER Unavailable Unavailable Anjel, M Crista GATHERING MACHINE SETTER Unavailable Unavailable Anjel, M Crista GATHERING MACHINE SETTER Unavailable Unavailable Anjel, M Crista GATHERING MACHINE SETTER Unavailable Unavailable Anjel, M Crista GATHERING MACHINE SETTER Unavailable Unavailable Anjel, M Crista GATHERING MACHINE SETTER Unavailable Unavailable Anjel, M Crista GATHERING MACHINE SETTER Unavailable Unavailable Anjel, M Crista GATHERING MACHINE SETTER Unavailable Unavailable Anjel, M Crista GATHERING MACHINE SETTER Unavailable Unavailable Anjel, M Crista GATHERING MACHINE SETTER Unavailable Unavailable Anjel, M Crista GATHERING MACHINE SETTER Unavailable Unavailable Anjel, M Crista GATHERING MACHINE SETTER Unavailable Unavailable Anjel, M Crista GATHERING MACHINE SETTER Unavailable Unavailable Rukhsana Lopez MD Unavailable Unavailable Rukhsana Lopez MD Unavailable Unavailable Rukhsana Lopez MD Unavailable Unavailable Rukhsana Lopez MD Unavailable Unavailable Rukhsana Lopez MD Unavailable Unavailable Rukhsana Lopez MD Unavailable Unavailable Rukhsana Lopez MD Unavailable Unavailable Rukhsana Lopez MD Unavailable Unavailable Rukshana Lopez MD Unavailable Unavailable Rukhsana Lopez MD Unavailable Unavailable Rukhsana Lopez MD Unavailable Unavailable Rukhsana Lopez MD Unavailable Unavailable Rukhsana Lopez MD Unavailable Unavailable Rukhsana Lopez MD Unavailable Unavailable Rukhsana Lopez MD Unavailable Unavailable Rukhsana Lopez MD Unavailable Unavailable Rukhsana Lopez MD Unavailable Unavailable Rukhsana Lopez MD Unavailable Unavailable Rukhsana Lopez MD Unavailable Unavailable Rukhsana Lopez MD Unavailable Unavailable Rukhsana Lopez MD Unavailable Unavailable Rukhsana Lopez MD Unavailable Unavailable Rukhsana Lopez MD Unavailable Unavailable Rukhsana Lopez MD Unavailable Unavailable Rukhsana Lopez MD Unavailable Unavailable Rukhsana Lopez MD Unavailable Unavailable Rukhsana Lopez MD Unavailable Unavailable Rukhsana Lopez MD Unavailable Unavailable Rukhsana Lopez MD Unavailable Unavailable Rukhsana Lopez MD Unavailable Unavailable Rukhsana Lopez MD Unavailable Unavailable Rukhsana Lopez MD Unavailable Unavailable Rukhsana Lopez MD Unavailable Unavailable Rukhsana Lopez MD Unavailable Unavailable Rukhsana Lopez MD Unavailable Unavailable Rukhsana Lopez MD Unavailable Unavailable Rukhsana Lopez MD Unavailable Unavailable Rukhsana Lopez MD Unavailable Unavailable Rukhsana Lopez MD Unavailable Unavailable Rukhsana Lopez MD Unavailable Unavailable Rukhsana Lopez MD Unavailable Unavailable Rukhsana Lopez MD Unavailable Unavailable Rukhsana Lopez MD Unavailable Unavailable Rukhsana Lopez MD Unavailable Unavailable Rukhsana Lopez MD Unavailable Unavailable Rukhsana Lopez MD Unavailable Unavailable Rukhsana Lopez MD Unavailable Unavailable Rukhsana Lopez MD Unavailable Unavailable Rukhsana Lopez MD Unavailable Unavailable Rukhsana Lopez MD Unavailable Unavailable Rukhsana Lopez MD Unavailable Unavailable Rukhsana Lopez MD Unavailable Unavailable Rukhsana Lopez MD Unavailable Unavailable Rukhsana Lopez MD Unavailable Unavailable Rukhsana Lopez MD Unavailable Unavailable Rukhsana Lopez MD Unavailable Unavailable Rukhsana Lopez MD Unavailable Unavailable Rukhsana Lopez MD Unavailable Unavailable Rukhsana Lopez MD Unavailable Unavailable Rukhsana Lopez MD Unavailable Unavailable Rukhsana Lopez MD Unavailable Unavailable Rukhsana Lopez MD Unavailable Unavailable Rukhsana Lopez MD Unavailable Unavailable Rukhsana Lopez MD Unavailable Unavailable Rukhsana Lopez MD Unavailable Unavailable Jessica F Toi HO Unavailable Unavailable Jessica F Toi HO Unavailable Unavailable Jessica F Toi HO Unavailable Unavailable Jessica F Toi HO Unavailable Unavailable Rukhsana Lopez MD Unavailable Unavailable Rukhsana Lopez MD Unavailable Unavailable Rukhsana Lopez MD Unavailable Unavailable Rukhsana Lopez MD Unavailable Unavailable Rukhsana Lopez MD Unavailable Unavailable Lamin, Janeen CLEARING INSPECTOR Unavailable Unavailable Lamin, Janeen CLEARING INSPECTOR Unavailable Unavailable Lamin, Janeen CLEARING INSPECTOR Unavailable Unavailable Lamin, Janeen CLEARING INSPECTOR Unavailable Unavailable Lamin, Janeen CLEARING INSPECTOR Unavailable Unavailable Lamin, Janeen CLEARING INSPECTOR Unavailable Unavailable Lamin, Janeen CLEARING INSPECTOR Unavailable Unavailable Lamin, Janeen CLEARING INSPECTOR Unavailable Unavailable Lamin, Janeen CLEARING INSPECTOR Unavailable Unavailable Lamin, Janeen CLEARING INSPECTOR Unavailable Unavailable Lamin, Janeen CLEARING INSPECTOR Unavailable Unavailable Lamin, Janeen CLEARING INSPECTOR Unavailable Unavailable Lamin, Janeen CLEARING INSPECTOR Unavailable Unavailable Lamin, Janeen CLEARING INSPECTOR Unavailable Unavailable Lamin, Janeen CLEARING INSPECTOR Unavailable Unavailable Lamin, Janeen CLEARING INSPECTOR Unavailable Unavailable Lamin, Janeen CLEARING INSPECTOR Unavailable Unavailable Lamin, Janeen CLEARING INSPECTOR Unavailable Unavailable Lamin, Janeen CLEARING INSPECTOR Unavailable Unavailable Lamin, Janeen CLEARING INSPECTOR Unavailable Unavailable Lamin, Janeen CLEARING INSPECTOR Unavailable Unavailable Lamin, Janeen CLEARING INSPECTOR Unavailable Unavailable Lamin, Janeen CLEARING INSPECTOR Unavailable Unavailable Lamin, Janeen CLEARING INSPECTOR Unavailable Unavailable Lamin, Janeen CLEARING INSPECTOR Unavailable Unavailable Lamin, Janeen CLEARING INSPECTOR Unavailable Unavailable Lamin, Janeen CLEARING INSPECTOR Unavailable Unavailable Rukhsana Lopez MD Unavailable Unavailable Rukhsana Lopez MD Unavailable Unavailable Rukhsana Lopez MD Unavailable Unavailable Rukhsana Lopez MD Unavailable Unavailable White F Toi HO Unavailable Unavailable White F Toi HO Unavailable Unavailable White F Toimallory HO Unavailable Unavailable White F Toimallory HO Unavailable Unavailable White F Toi OH Unavailable Unavailable White F Toimallory HO Unavailable Unavailable White F Toimallory HO Unavailable Unavailable White F Toimallory HO Unavailable Unavailable White F Toimallory HO Unavailable Unavailable White F Toi HO Unavailable Unavailable White F Toi HO Unavailable Unavailable White F Toi HO Unavailable Unavailable White F Toi HO Unavailable Unavailable White F Toimallory HO Unavailable Unavailable White F Toi HO Unavailable Unavailable White F Toimallory HO Unavailable Unavailable White, F Toimallory HO Unavailable Unavailable White, F Toimallory HO Unavailable Unavailable White, F Toi Unavailable Unavailable White F Toimallory HO Unavailable Unavailable White F Toi HO Unavailable Unavailable White F Toi HO Unavailable Unavailable White F Toi HO Unavailable Unavailable White F Toi HO Unavailable Unavailable White F Toi HO Unavailable Unavailable White F Toi HO Unavailable Unavailable White F Toi HO Unavailable Unavailable Jessica F Toi HO Unavailable Unavailable White F Toi HO Unavailable Unavailable White F Toi HO Unavailable Unavailable White F Toi HO Unavailable Unavailable White F Toi HO Unavailable Unavailable White F Toi HO Unavailable Unavailable White F Toi HO Unavailable Unavailable Jessica F Toi HO Unavailable Unavailable Jessica F Toi HO Unavailable Unavailable Jessica F Toi HO Unavailable Unavailable Jessica F Toi HO Unavailable Unavailable White F Toi HO Unavailable Unavailable Jessica F Toi HO Unavailable Unavailable Jessica F Toi HO Unavailable Unavailable Jessica F Toi HO Unavailable Unavailable Jessica F Toi HO Unavailable Unavailable Jessica F Toi HO Unavailable Unavailable Jessica F Toi HO Unavailable Unavailable Jessica F Toi HO Unavailable Unavailable Jessica F Toi HO Unavailable Unavailable Jessica F Toi HO Unavailable Unavailable Jessica F Toi HO Unavailable Unavailable Jessica F Toi HO Unavailable Unavailable Jessica F Toi HO Unavailable Unavailable Jessica F Toi HO Unavailable Unavailable Jessica F Toi HO Unavailable Unavailable Jessica F Toi HO Unavailable Unavailable Jessica F Toi HO Unavailable Unavailable Jessica F Toi HO Unavailable Unavailable Jessica F Toi HO Unavailable Unavailable Jessica F Toi HO Unavailable Unavailable Jessica F Toi HO Unavailable Unavailable Jessica F Toi HO Unavailable Unavailable Jessica F Toi HO Unavailable Unavailable Jessica F Toi HO Unavailable Unavailable Jessica Rukhsana Cm MD Unavailable Unavailable Jessica F Toi HO Unavailable Unavailable White, F Toi HO Unavailable Unavailable White, F Toi HO Unavailable Unavailable White, F Toi HO Unavailable Unavailable White, F Toi HO Unavailable Unavailable White, F Toi HO Unavailable Unavailable White, F Toi HO Unavailable Unavailable Baldwin, Dennise GATHERING MACHINE SETTER Unavailable Unavailable Baldwin, Dennise GATHERING MACHINE SETTER Unavailable Unavailable Baldwin, Dennise GATHERING MACHINE SETTER Unavailable Unavailable Baldwin, Dennise GATHERING MACHINE SETTER Unavailable Unavailable Baldwin, Dennise GATHERING MACHINE SETTER Unavailable Unavailable Baldwin, Dennise GATHERING MACHINE SETTER Unavailable Unavailable Baldwin, Dennise GATHERING MACHINE SETTER Unavailable Unavailable Baldwin, Dennise GATHERING MACHINE SETTER Unavailable Unavailable Baldwin, Dennise GATHERING MACHINE SETTER Unavailable Unavailable Baldwin, Dennise GATHERING MACHINE SETTER Unavailable Unavailable Baldwin, Dennise GATHERING MACHINE SETTER Unavailable Unavailable Lamin, Janeen CLEARING INSPECTOR Unavailable Unavailable Lamin, Janeen CLEARING INSPECTOR Unavailable Unavailable Lamin, Janeen CLEARING INSPECTOR Unavailable Unavailable Lamin, Janeen CLEARING INSPECTOR Unavailable Unavailable Lamin, Janeen CLEARING INSPECTOR Unavailable Unavailable Lamin, Janeen CLEARING INSPECTOR Unavailable Unavailable Lamin, Janeen CLEARING INSPECTOR Unavailable Unavailable Lamin, Janeen CLEARING INSPECTOR Unavailable Unavailable Lamin, Janeen CLEARING INSPECTOR Unavailable Unavailable Lamin, Janeen CLEARING INSPECTOR Unavailable Unavailable Lamin, Janeen CLEARING INSPECTOR Unavailable Unavailable Lamin, Janeen CLEARING INSPECTOR Unavailable Unavailable Lamin, Janeen CLEARING INSPECTOR Unavailable Unavailable Lamin, Janeen CLEARING INSPECTOR Unavailable Unavailable Lamin, Janeen CLEARING INSPECTOR Unavailable Unavailable Lamin, Janeen CLEARING INSPECTOR Unavailable Unavailable Lamin, Janeen CLEARING INSPECTOR Unavailable Unavailable Lamin, Janeen CLEARING INSPECTOR Unavailable Unavailable Lamin, Janeen CLEARING INSPECTOR Unavailable Unavailable Lamin, Janeen CLEARING INSPECTOR Unavailable Unavailable Lamin, Janeen CLEARING INSPECTOR Unavailable Unavailable Lamin, Janeen CLEARING INSPECTOR Unavailable Unavailable Lamin, Janeen CLEARING INSPECTOR Unavailable Unavailable Lamin, Janeen CLEARING INSPECTOR Unavailable Unavailable Lamin, Janeen CLEARING INSPECTOR Unavailable Unavailable Lamin, Janeen CLEARING INSPECTOR Unavailable Unavailable Lamin, Janeen CLEARING INSPECTOR Unavailable Unavailable Re-disclosure Warning The records that you are about to access may contain information from federally-assisted alcohol or drug abuse programs. If such information is present, then the following federally mandated warning applies: This information has been disclosed to you from records protected by federal confidentiality rules (42 CFR part 2). The federal rules prohibit you from making any further disclosure of this information unless further disclosure is expressly permitted by the written consent of the person to whom it pertains or as otherwise permitted by 42 CFR part 2. A general authorization for the release of medical or other information is NOT sufficient for this purpose. The Federal rules restrict any use of the information to criminally investigate or prosecute any alcohol or drug abuse patient.The records that you are about to access may contain highly sensitive health information, the redisclosure of which is protected by Article 27-F of the [facility] Public Health law. If you continue you may have access to information: Regarding HIV / AIDS; Provided by facilities licensed or operated by the [facility] Office of Mental Health; or Provided by the [facility] Office for People With Developmental Disabilities. If such information is present, then the following [facility] mandated warning applies: This information has been disclosed to you from confidential records which are protected by state law. State law prohibits you from making any further disclosure of this information without the specific written consent of the person to whom it pertains, or as otherwise permitted by law. Any unauthorized further disclosure in violation of state law may result in a fine or mcc sentence or both. A general authorization for the release of medical or other information is NOT sufficient authorization for further disc losure. Family History Family Member Name Family Member Gender Family Member Status Date o f Status Description Data Source(s) Unknown Female Problem MEDENT ([facility]) Unknown Female Problem [facility]ENT ([facility]) Unknown Female Problem [facility] ([facility]) Unknown Female Problem [facility] ([facility]) Encounters Encounter Providers Location Date Indications Data Source(s ) Office Visit Attender: Toi Mckeon 06/18 02:00:00 PM EST MEDENT ([facility] ) [facility] [address] [place] [id number] 05/17/2020 12:00:00 AM EST eCW1 ([facility]) Outpatient Attender: Dennise choudhury 04/08/2020 08:45:00 AM EST [facility] ([facility]) Outpatient Referrer: Janeen PATINOP 07/29/2019 01:52:00 PM EST [facility] Outpatient Referrer: Janeen Kimble CLEARING INSPECTOR 07/29/2019 01:51:00 PM EST [facility] Outpatient Referrer: Janeen Kimble CLEARING INSPECTOR 07/28/2019 11:19:00 AM EST [facility] Outpatient Attender: Janeen PATINOP Tutu Mckeon 09:00:00 AM EST MEDENT ([facility] ) Outpatient Referrer: Toi Lopez MD 06/15/2019 09:05:00 AM EST [facility] Outpatient Referrer: Toi Lopez MD 06/07/2019 10:09:00 AM EST [facility] Outpatient Referrer: Crista Hobbs NP 06/07/2019 10:08:00 AM EST [facility] Immunizations Vaccine Date Status Description Data Source(s) This CVX code allows reporting of a vacc ination when formulation is unknown (for example, when recording a Influenza vaccination when noted on a vaccination card) 03/08/2020 08:40:00 AM EDT completed MEDEN T ([facility]) INFLUENZA VACCINE TVS 2019- (65 YR UP)/ADJUVANT MF59 C.1/PF 03/08/2020 12:00:00 AM EDT completed [facility] Medications Medication Brand Name Start Date Product Form Dose Route Admi nistrative Instructions Pharmacy Instructions Status Indications Reaction Description Data Source(s) Polymyxin B 03417 UNT/ML / Trimethoprim 1 MG/ML Ophtha lmic Solution Polymyxin B Sulfate/Trimethoprim Sulfate 04/08/2020 12:00:00 AM EST active MEDENT ([facility]) Hydrocortisone 25 MG/ML Topical Cream Proctosol HC 01/11/2020 12:00 :00 AM EDT active MEDENT ([facility]) Triamcinolone Acetonide 5 MG/ML Topical Cream Triamcinolone Acetonide 12/12/2019 12:00:00 AM EDT active M EDENT ([facility]) Insurance Providers Payer name Policy type / Coverage type Policy ID Covered republican ID Covered republican's relationship to casillas Policy [place] Plan Information UMR [facility] [id number] SP [id number] MEDICARE [id number] SP [id number] [place] [id number] SP [id number] UMR O [id number] S [id number] MEDICARE C [id number] S [id number] [place] (Old) Medigap Part B [id number] Self [id number] Umr (New [place]) Medigap Part B [id number] Self [id number] Medicare Natl Govt Servic Medicare Primary [id number] Self [id number] ANSI-Medicare Part B [id number] ANSI-Commercial [id number] [place] (Old) Medigap Part B [id number] Self [id number] Medicare Natl Govt Servic Medicare Primary [id number] Self [id number] Umr [place] Ppo Medigap Part B [id number] Self [id number] Medicare Natl Govt Servic Medicare Primary [id number] Self [id number] MEDICARE [id number] SP [id number] A [place] Ppo Medigap Part B [id number] Self [id number] Medicare Natl Govt Servic Medicare Primary [id number] Self [id number] [place] Ppo Medigap Part B [id number] Self [id number] Medicare Natl Govt Servic Medicare Primary [id number] Self [id number] [place] Ppo Medigap Part B [id number] Self [id number] Medicare Natl Govt Servic Medicare Primary [id number] Self [id number] Medicare Natl Govt Servic Medicare Primary Self [place] Ppo Commercial [id number] Self [id number] [place] Primary Self [place] [employer] (HMO) Se lf [employer] PPO P [id number] S [id number] Surgeries/Procedures Procedure Description Date Indications Data Source(s) ECG ROUTINE ECG W/LEAST 12 LDS W/I&R 06/18/2020 12:00: 00 AM EST MEDENT ([facility]) Mammogram 04/17/2020 12:00:00 AM EST M EDENT ([facility]) Bone Mineral Density Test 06/13/2019 12:00:00 AM EST MEDENT ([facility]) Results ID Date Data Source [id number] 07/08/2020 08:30:00 AM EST [facility] Name Value Range Interpretation Code Description Data Ceci rce(s) Supporting Document(s) SARS coronavirus 2 RNA Not Detected [facility] [place] This lab was ordered by [facility] and reported by [facility]. ID Date Data Source [id number] 07/04/2020 02:14:00 PM EST MEDENT ([facility]) Name Value Range Interpretation Code Description Data Ceci rce(s) Supporting Document(s) Glucose, Fasting 104 mg/dL 70-100 [facility] ([facility]) Blood Urea Nitrogen 16 mg/dL 7-18 MED[facility] ([facility]) Creatinine For GFR 0.74 mg/dL 0.55-1.30 [facility] ([facility]) Glomerular Filtration Rate Laboratory test result MEDENT ([facility]) <content>Units are mL/min/1.73 m2</content>
<content></content>
<content>Chronic Kidney Disease Staging per NKF:</content>
<content></content>
<content>Stage I & II GFR >=60 Normal to Mildly Decreased</content>
<content>Stage III GFR 30-59 Moderately Decreased</content>
<content>Stage IV GFR 15-29 Severely Decreased</content>
<content>Stage V GFR <15 Very Little GFR Left</content>
<content>ESRD GFR <15 on MAGNETIC OBSERVER</content>
<content></content> Sodium Level 143 meq/L 136-145 MEDENT ([facility]) Potassium Serum 3.6 meq/L 3.5-5.1 MEDENT ([facility]) Chloride Level 106 meq/L 98-107 [facility] ([facility]) Anion Gap 4 meq/L 8-16 [facility] Carbon Dioxide Level 33 meq/L 21-32 [facility] ([facility]) Ast/Sgot 18 U/L 7-37 [facility] ([facility]) Calcium Level 9.0 mg/dL 8.8-10.2 [facility] Alt/SGPT 25 U/L 12-78 [facility] Alkaline Phosphatase 130 U/L 45-117 [facility] Total Protein 7.0 GM/DL 6.4-8.2 [facility] Bilirubin,Total 0.4 mg/dL 0.2-1.0 [facility] ([facility]) Albumin 3.8 GM/DL 3.2-5.2 [facility] ([facility]) Albumin/Globulin Ratio 1.2 1.2-2.2 [facility] ([facility]) ID Date Data Source [id number] 07/04/2020 02:14:00 PM EST MED[facility] Name Value Range Interpretation Code Description Data Ceci rce(s) Supporting Document(s) White Blood Count 9.1 10 4.0-10.0 MEDENT ([facility]) Hematocrit 41.6 % 36.0-47.0 [facility] ([facility]) Red Blood Count 4.40 10 4.00-5.40 [facility] ([facility]) Hemoglobin 13.4 g/dL 12.0-15.5 [facility] ([facility]) Mean Corpuscular Hemoglobin 30.5 pg 27.0-33.0 [place] [facility] ([facility]) Mean Corpuscular HGB Conc 32.2 g/dL 32.0-36.5 MEDE NT ([facility]) Mean Corpuscular Volume 94.5 fl 80.0-96.0 [facility] ([facility]) Platelet Count, Automated 244 10 150-450 MEDE NT ([facility]) Red Cell Distribution Width 13.8 % 11.5-14.5 [place] [facility] ([facility]) Pender % 6.4 % 0.0-5.0 [facility] Lymph % 12.2 % 24.0-44.0 [facility] Neutrophils % 80.1 % 36.0-66.0 [facility] ([facility]) Baso % 0.3 % 0.0-1.0 [facility] Eos % 0.9 % 0.0-3.0 [facility] Neutrophils # 7.3 10 1.5-8.5 [facility] ([facility]) Nucleated Red Blood Cell % 0.0 % 0-0 MED ENT ([facility]) Immature Granulocyte % 0.1 % 0-3.0 [facility] ([facility]) Pender # 0.6 10 0.0-0.8 [facility] Lymph # 1.1 10 1.5-5.0 [facility] Eos # 0.1 10 0.0-0.5 [facility] Baso # 0.0 10 0.0-0.2 [facility] ID Date Data Source [id number] 06/13/2020 08:46:00 AM EST [facility] ([facility]) Name Value Range Interpretation Code Description Data Ceci rce(s) Supporting Document(s) Cholesterol in HDL [Mass/volume] in Serum or Plasma 60 mg/dL 35-60 [facility] ([facility]) Triglyceride [Mass/volume] in Serum or Plasma 179 mg/dL 30-150 [facility] ([facility]) Cholesterol [Mass/volume] in Serum or Plasma 207 mg/dL 131-200 [facility] ([facility]) Cholesterol in LDL [Mass/volume] in Serum or Plasma by calcu lation 111 CALC 50-159 [facility] ([facility]) ID Date Data Source [id number] 06/13/2020 08:46:00 AM EST [facility] ([facility]) Name Value Range Interpretation Code Description Data Ceci rce(s) Supporting Document(s) Urea nitrogen [Mass/volume] in Serum or Plasma 14 mg/dL 7-18 [facility] ([facility]) Creatinine 0.8 mg/dL 0.6-1.3 [facility] ([facility]) Glucose [Mass/volume] in Serum or Plasma 84 mg/dL 74-99 [facility] ([facility]) 100-125 mg/dL PRE-DIABETES/FASTING >126 mg/dL DIABETES/FASTING Sodium [Moles/volume] in Serum or Plasma 142 meq/L 136-145 [facility] ([facility]) Chloride [Moles/volume] in Serum or Plasma 104 meq/L 98-107 [facility] ([facility]) Potassium [Moles/volume] in Serum or Plasma 4.1 meq/L 3.5-5.1 [facility] Alkaline phosphatase isoenzyme [Units/volume] in Serum or Pl asma 133 mg/dL 46-116 [facility] ([facility]) Carbon dioxide, total [Moles/volume] in Serum or Plasma 33 meq/L 21 -32 [facility] ([facility]) Calcium [Mass/volume] in Serum or Plasma 8.7 mg/dL 8.5-10.1 [facility] Total Bilirubin 0.8 mg/dL 0.2-1.0 [facility] ([facility]) Alanine aminotransferase [Enzymatic activity/volume] in Seru m or Plasma 21 U/L 12-78 [facility] ([facility]) Aspartate aminotransferase [Enzymatic activity/volume] in Serum or Plasma 19 U/L 15-37 [facility] ([facility] ) Albumin [Mass/volume] in Serum or Plasma 3.8 g/dL 3.4-5.0 [facility] ([facility]) Proteinase 3 Ab [Units/volume] in Serum 7.2 g/dL 6.4-8.2 [facility] Glomerular filtration rate/1.73 sq M pre dicted among non-blacks [Volume Rate/Area] in Serum or Plasma by Creatinine-based formula (MDRD) Laboratory test result [facility] A/G Ratio 1.12 CALC 1.00-1.90 [facility] Glomerular filtration rate/1.73 sq M pre dicted among blacks [Volume Rate/Area] in Serum or Plasma by Creatinine-based formula (MDRD) Laboratory test result [facility] <content>CHRONIC KIDNEY DISEASE STAGING PER NKF</content>
<content></content>
<content>STAGE I & II GFR >= 60 NORMAL TO MILDLY DECREASED</content>
<content>STAGE III GFR 30-59 MODERATELY DECREASED</content>
<content>STAGE IV GFR 15-29 SEVERELY DECREASED</content>
<content>STAGE V GFR <15 VERY LITTLE GFR LEFT</content>
<content>ESRD GFR <15 ON MAGNETIC OBSERVER</content>
<content></content> ID Date Data Source [id number] 12/09/2019 08:15:00 AM EDT [facility] Name Value Range Interpretation Code Description Data Ceci rce(s) Supporting Document(s) Thyrotropin [Units/volume] in Serum or Plasma by Detec tion limit <= 0.05 mIU/L 2.16 uIU/mL 0.36-3.74 [facility] ID Date Data Source [id number] 12/09/2019 08:15[facility] Name Value Range Interpretation Code Description Data Ceci rce(s) Supporting Document(s) Triglyceride [Mass/volume] in Serum or Plasma 196 mg/dL 30-150 [facility] Cholesterol [Mass/volume] in Serum or Plasma 196 mg/dL 131-200 [facility] ([facility]) Cholesterol in LDL [Mass/volume] in Serum or Plasma by calcu lation 104 CALC 50-159 [facility] Cholesterol in HDL [Mass/volume] in Serum or Plasma 53 mg/dL 35-60 [facility] ([facility]) ID Date Data Source [id number] 12/09/2019 08:15:00 AM EDT [facility] Name Value Range Interpretation Code Description Data Ceci rce(s) Supporting Document(s) Glucose [Mass/volume] in Serum or Plasma 87 mg/dL 74-99 [facility] ([facility]) 100-125 mg/dL PRE-DIABETES/FASTING >126 mg/dL DIABETES/FASTING Urea nitrogen [Mass/volume] in Serum or Plasma 16 mg/dL 7-18 [facility] Creatinine 0.7 mg/dL 0.6-1.3 [facility] ([facility]) Potassium [Moles/volume] in Serum or Plasma 4.3 meq/L 3.5-5.1 [facility] ([facility]) Sodium [Moles/volume] in Serum or Plasma 143 meq/L 136-145 [facility] ([facility]) Chloride [Moles/volume] in Serum or Plasma 106 meq/L 98-107 [facility] Calcium [Mass/volume] in Serum or Plasma 8.9 mg/dL 8.5-10.1 [facility] Alkaline phosphatase isoenzyme [Units/volume] in Serum or Pl asma 123 mg/dL 46-116 [facility] NOTE: RESULT VERIFIED. Carbon dioxide, total [Moles/volume] in Serum or Plasma 30 meq/L 21 -32 [facility] Total Bilirubin 0.5 mg/dL 0.2-1.0 [facility] ([facility]) Aspartate aminotransferase [Enzymatic activity/volume] in Serum or Plasma 16 U/L 15-37 [facility] Albumin [Mass/volume] in Serum or Plasma 3.7 g/dL 3.4-5.0 [facility] ([facility]) Alanine aminotransferase [Enzymatic activity/volume] in Seru m or Plasma 20 U/L 12-78 [facility] ([facility]) Proteinase 3 Ab [Units/volume] in Serum 7.1 g/dL 6.4-8.2 [facility] Glomerular filtration rate/1.73 sq M pre dicted among non-blacks [Volume Rate/Area] in Serum or Plasma by Creatinine-based formula (MDRD) [facility] A/G Ratio 1.09 CALC 1.00-1.90 [facility]) Glomerular filtration rate/1.73 sq M pre dicted among blacks [Volume Rate/Area] in Serum or Plasma by Creatinine-based formula (MDRD) Laboratory test result [facility] ([facility]) <content>CHRONIC KIDNEY DISEASE STAGING PER NKF</content>
<content></content>
<content>STAGE I & II GFR >= 60 NORMAL TO MILDLY DECREASED</content>
<content>STAGE III GFR 30-59 MODERATELY DECREASED</content>
<content>STAGE IV GFR 15-29 SEVERELY DECREASED</content>
<content>STAGE V GFR <15 VERY LITTLE GFR LEFT</content>
<content>ESRD GFR <15 ON MAGNETIC OBSERVER</content>
<content></content> ID Date Data Source [id number] 07/28/2019 12:00:00 AM EST [facility] Janeen Kimble Np Patient Name: ALEXANDER DEL [id number] [facility] Date of : 1950[place] [address] Date of Exam: 07/28/2019PH#: Fax: [phone] EXAM: WRIST LEFT (COMPLETE) X-RAYCLINICAL INFORMATION: Pain.Four views.No acute fracture or dislocation is seen. There is mild narrowing of theradiocarpal joint. There is moderate narrowing with subchondral sclerosisand spurring at the joint between the trapezium and base of the 1stmetacarpal.IMPRESSION:Arthritic changes as above.Heriberto Leal, ANITA/Tk you for referring ALEXANDER DEL ANGEL to our office. Electronically Signed - HERIBERTO LEAL MD 08/01/19 13:12 Name Value Range Interpretation Code Description Data Ceci rce(s) Supporting Document(s) ID Date Data Source [id number] 07/04/2019 08:47:00 AM EST [facility] ([facility]) Name Value Range Interpretation Code Description Data Ceci rce(s) Supporting Document(s) Urea nitrogen [Mass/volume] in Serum or Plasma 14 mg/dL 7-18 [facility] ([facility]) Glucose [Mass/volume] in Serum or Plasma 80 mg/dL 74-99 [facility] ([facility]) 100-125 mg/dL PRE-DIABETES/FASTING >126 mg/dL DIABETES/FASTING Potassium [Moles/volume] in Serum or Plasma 4.0 meq/L 3.5-5.1 [facility] ([facility]) Sodium [Moles/volume] in Serum or Plasma 142 meq/L 136-145 [facility] ([facility]) Creatinine 0.8 mg/dL 0.6-1.3 [facility] ([facility]) Chloride [Moles/volume] in Serum or Plasma 104 meq/L 98-107 [facility] ([facility]) Calcium [Mass/volume] in Serum or Plasma 9.2 mg/dL 8.5-10.1 [facility] ([facility]) Glomerular filtration rate/1.73 sq M pre dicted among non-blacks [Volume Rate/Area] in Serum or Plasma by Creatinine-based formula (MDRD) Laboratory test result [facility] ([facility] ) Carbon dioxide, total [Moles/volume] in Serum or Plasma 30 meq/L 21 -32 [facility] ([facility]) Glomerular filtration rate/1.73 sq M pre dicted among blacks [Volume Rate/Area] in Serum or Plasma by Creatinine-based formula (MDRD) Laboratory test result [facility] ([facility]) <content>CHRONIC KIDNEY DISEASE STAGING PER NKF</content>
<content></content>
<content>STAGE I & II GFR >= 60 NORMAL TO MILDLY DECREASED</content>
<content>STAGE III GFR 30-59 MODERATELY DECREASED</content>
<content>STAGE IV GFR 15-29 SEVERELY DECREASED</content>
<content>STAGE V GFR <15 VERY LITTLE GFR LEFT</content>
<content>ESRD GFR <15 ON MAGNETIC OBSERVER</content>
<content></content> ID Date Data Source [id number] 06/02/2019 08:17:00 AM EST [facility] ([facility]) Name Value Range Interpretation Code Description Data Ceci rce(s) Supporting Document(s) Cholesterol [Mass/volume] in Serum or Plasma 124 mg/dL 131-200 [facility] ([facility]) Cholesterol in HDL [Mass/volume] in Serum or Plasma 49 mg/dL 35-60 [facility] ([facility]) Triglyceride [Mass/volume] in Serum or Plasma 95 mg/dL 30-150 [facility] ([facility]) Cholesterol in LDL [Mass/volume] in Serum or Plasma by calcu lation 56 CALC 50-159 [facility] ([facility]) ID Date Data Source [id number] 06/02/2019 08:17:00 AM EST [facility] ([facility]) Name Value Range Interpretation Code Description Data Ceci rce(s) Supporting Document(s) Glucose [Mass/volume] in Serum or Plasma 91 mg/dL 74-99 [facility] ([facility]) 100-125 mg/dL PRE-DIABETES/FASTING >126 mg/dL DIABETES/FASTING Creatinine 0.7 mg/dL 0.6-1.3 [facility]) Urea nitrogen [Mass/volume] in Serum or Plasma 10 mg/dL 7-18 [facility] ([facility]) Sodium [Moles/volume] in Serum or Plasma 143 meq/L 136-145 [facility] ([facility]) Carbon dioxide, total [Moles/volume] in Serum or Plasma 29 meq/L 21 -32 [facility] ([facility]) Chloride [Moles/volume] in Serum or Plasma 106 meq/L 98-107 [facility] ([facility]) Potassium [Moles/volume] in Serum or Plasma 3.3 meq/L 3.5-5.1 [facility] ([facility]) NOTE: RESULT VERIFIED. Alkaline phosphatase isoenzyme [Units/volume] in Serum or Pl asma 101 mg/dL 46-116 [facility] ([facility]) Total Bilirubin 0.6 mg/dL 0.2-1.0 [facility] ([facility]) Calcium [Mass/volume] in Serum or Plasma 8.5 mg/dL 8.5-10.1 [facility] ([facility]) Alanine aminotransferase [Enzymatic activity/volume] in Seru m or Plasma 26 U/L 12-78 [facility] ([facility]) Aspartate aminotransferase [Enzymatic activity/volume] in Serum or Plasma 24 U/L 15-37 [facility] ([facility] ) Albumin [Mass/volume] in Serum or Plasma 3.4 g/dL 3.4-5.0 [facility] ([facility]) Proteinase 3 Ab [Units/volume] in Serum 6.6 g/dL 6.4-8.2 [facility] ([facility]) A/G Ratio 1.06 CALC 1.00-1.90 [facility]) Glomerular filtration rate/1.73 sq M pre dicted among non-blacks [Volume Rate/Area] in Serum or Plasma by Creatinine-based formula (MDRD) >= 60 mL/min [facility] ([facility]) Glomerular filtration rate/1.73 sq M pre dicted among blacks [Volume Rate/Area] in Serum or Plasma by Creatinine-based formula (MDRD) >= 60 mL/min [facility] ([facility]) <content>CHRONIC KIDNEY DISEASE STAGING PER NKF</content>
<content></content>
<content>STAGE I & II GFR >= 60 NORMAL TO MILDLY DECREASED</content>
<content>STAGE III GFR 30-59 MODERATELY DECREASED</content>
<content>STAGE IV GFR 15-29 SEVERELY DECREASED</content>
<content>STAGE V GFR <15 VERY LITTLE GFR LEFT</content>
<content>ESRD GFR <15 ON MAGNETIC OBSERVER</content>
<content></content> Procedure Social History Code Duration Value Status Description Data Source(s ) Smoking 04/08/2020 12:00:00 AM EST Patient has never smoked co mpleted Patient has never smoked [facility] ([facility]) Vital Signs ID Date Data Source UNK Name Value Range Interpretation Code Description Data Source(s) Body mass index (BMI) [Ratio] 28.3 kg/m2 28.3 k g/m2 [facility] ([facility]) Body weight 170.00 [lb_av] 170.00 [lb_av] [facility] T ([facility]) Body height 65 [in_i] 65 [in_i] [facility] 5'5" Heart rate 78 /min 78 /min [facility] ([facility]) Diastolic blood pressure 80 mm[Hg] 80 mm[Hg] [facility] Systolic blood pressure 116 mm[Hg] 116 mm[Hg] [facility] Body mass index (BMI) [Ratio] 29.1 kg/m2 29.1 k g/m2 [facility]) Body height 65 [in_i] 65 [in_i] [facility] ([facility]) 5'5" Body weight 175.00 [lb_av] 175.00 [lb_av] [facility] T ([facility]) Body temperature 98.5 [degF] 98.5 [degF] [facility] ([facility]) Oxygen saturation in Arterial blood by Pulse oximetry 97 % 97 % [facility] ([facility]) Respiratory rate 12 /min 12 /min [facility] ( [facility]) Heart rate 94 /min 94 /min [facility] ([facility]) Diastolic blood pressure 89 mm[Hg] 89 mm[Hg] [facility]) Systolic blood pressure 139 mm[Hg] 139 mm[Hg] M [facility] Body mass index (BMI) [Ratio] 28.3 kg/m2 28.3 k g/m2 [facility] ([facility]) Oxygen saturation in Arterial blood by Pulse oximetry 97 % 97 % [facility] ([facility]) RM Air Body weight 170.38 [lb_av] 170.38 [lb_av] [facility] T ([facility]) Body height 65 [in_i] 65 [in_i] [facility] ([facility]) 5'5" Heart rate 74 /min 74 /min [facility] ([facility]) Diastolic blood pressure 66 mm[Hg] 66 mm[Hg] [facility]) Systolic blood pressure 122 mm[Hg] 122 mm[Hg] [facility] ([facility]) Body mass index (BMI) [Ratio] 28.6 kg/m2 28.6 k g/m2 [facility] Body weight 172.00 [lb_av] 172.00 [lb_av] [facility] T ([facility]) Body height 65 [in_i] 65 [in_i] [facility] ([facility]) 5'5" Heart rate 88 /min 88 /min [facility]) Diastolic blood pressure 80 mm[Hg] 80 mm[Hg] [facility] ([facility]) RT Arm Systolic blood pressure 130 mm[Hg] 130 mm[Hg] [facility] ([facility]) RT Arm Heart rate 86 /min 86 /min [facility] ([facility]) Diastolic blood pressure 62 mm[Hg] 62 mm[Hg] [facility]) Systolic blood pressure 116 mm[Hg] 116 mm[Hg] [facility] ([facility]) Body mass index (BMI) [Ratio] 28.0 kg/m2 28.0 k g/m2 [facility] ([facility]) Oxygen saturation in Arterial blood by Pulse oximetry 97 % 97 % [facility] ([facility]) RM Air Body weight 168.00 [lb_av] 168.00 [lb_av] [facility] T ([facility]) Body height 65 [in_i] 65 [in_i] [facility] ([facility]) 5'5"
[2020-07-13] MEDS ORDERED: LR 1,000 ML IV ONE (07:00)
[2020-07-13] MEDS ORDERED: VANCOMYCIN HCL 1,000 MG, VIAL MATE ADAPTER 1 EACH in D5W 250 ML IV ONE (07:00)
[2020-07-13] MEDS ORDERED: BACITRACIN PWD 50,000 UNITS VIAL As Ordered ONE (07:13)
[2020-07-13] MEDS ORDERED: LIDOCAINE 2% MDV 20ML VIAL As Ordered ONE (07:13)
[2020-07-13] MEDS ORDERED: BUPIVACAINE HCL 0.5% 30 ML VIAL As Ordered ONE (07:13)
[2020-07-13] MEDS ORDERED: dexameTHASONE 4 MG/ML 1ML VIAL (J1100 PER 1MG) As Ordered ONE (07:13)
[2020-07-13] MEDS ORDERED: NEOSPORIN GU IRRIG 20 ML VIAL As Ordered ONE (07:15)
[2020-07-13] MEDS ORDERED: propofoL 200 MG/20 ML VIAL As Ordered ONE (07:16)
[2020-07-13] MEDS ORDERED: LIDOCAINE 2% 100MG/5ML SDV (FOR ANES.) As Ordered ONE (07:16)
[2020-07-13] MEDS ORDERED: MIDAZOLAM INJ 2MG/2ML VIAL (J2250 PER 1MG) As Ordered ONE (07:16)
[2020-07-13] MEDS ORDERED: fentaNYL 100 MCG/2 ML INJECTION (J3010) As Ordered ONE (07:16)
--- NOTE | 2020-07-13 08:52 | REP ---
INDICATION: post op COMPARISON: None. TECHNIQUE: Portable AP, oblique, and lateral views of the left foot FINDINGS: Patient is status post surgical repair involving the 1st and 2nd toes with satisfactory alignment and postsurgical changes. IMPRESSION: Satisfactory alignment and postsurgical changes.. <Electronically signed by Rudy Melvin > 07/13/20 0822
[2020-07-13 09:16] VITALS: BP 122/61
--- NOTE | 2020-07-13 10:37 | RO ---
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 PROCEDURE: Distal interphalangeal joint arthroplasty 4th toe left foot. SURGEON: Simon Hanna DPM ELECTRIC TOOL REPAIRER: ANESTHESIA: Local, MAC. IRRIGATION: Dilute Bacitracin, Neomycin and Polymyxin B solution. HEMOSTASIS: Ankle pneumatic tourniquet at 200 mmHg for 26 minutes. HARDWARE UTILIZED: 0.045 external wire. ESTIMATED BLOOD LOSS: 1 mL. DESCRIPTION OF PROCEDURE: On 07/13/2020 this 69-year-old white female was taken from hospital room to the operating room and placed on the operating table in supine position. Following induction of IV sedation, local and regional anesthesia the left lower extremity was prepped and draped in usual aseptic manner. Attention was directed to the patient's 4th toe. There was noted to be a medially deviated mallet toe deformity on the 4th toe of the left foot. At this time a teardrop shaped incision was placed over the distal interphalangeal joint with the base of this incision in lateral direction. The incision was carried straight down to the extensor tendon and the skin wedge was removed. The transverse tenotomy and capsulotomy was performed at the level of the distal interphalangeal joint, the extensor tendon was retracted in proximal direction. Medial and lateral collateral ligaments of the distal interphalangeal joint were excised. A wedged osteotomy was placed at the midshaft of the distal interphalangeal joint and this was extirpated from the wound. Bone was taken more on the lateral side to straighten the toe. Utilizing external wire and C-arm imaging a wire was driven through the distal phalanx and then retrogradely into the middle and distal phalanx. Wire was bent; protective cap was placed on the distal end. Wound was flushed with copious amounts of dilute Bacitracin, Neomycin, and Polymyxin B solution. Utilizing 4-0 Supramid suture a four stranded Hernandez repair was performed of the extensor tendon. Skin was closed with 4-0 Prolene in simple interrupted type fashion. Following the completion of the surgical procedure approximately 1 mg of Dexamethasone with 0.5 mL of 0.5% Marcaine was instilled proximal to the surgical site. Attention was directed toward bandage and sterile compression bandage was applied consisting of Adaptic, 4 x 4s, 4x4 splints, Saba, Kerlix and Coban. Ankle pneumatic tourniquet was deflated and capillary refill noted digits 1 through 5 of left foot. The patient having apparently tolerated the surgical procedure and was taken from the OR to the recovery room for further monitoring by anesthesia department. Postoperative instructions given upon discharge.
== END 2020-07-13 09:50 | disposition home or self-care (01) ==
LOC: M SDC 06:09
PROVIDERS: ATTEND Podiatrist
DX: M20.42 Other hammer toe(s) (acquired), left foot (principal); M79.675 Pain in left toe(s); L60.2 Onychogryphosis; E78.5 Hyperlipidemia, unspecified; K21.9 Gastro-esophageal reflux disease without esophagitis; Z79.899 Other long term (current) drug therapy; Z88.0 Allergy status to penicillin
CPT/HCPCS: 28285; 73630; 76000; 88300; 97116; 97161; C1713; J1100; J2250; J3010; J3370

== ENCOUNTER → 2021-05-15 | Outpatient (CLI) | payer MEDICARE, OTHER | LOC: M PLAIMG 13:33 | PROVIDERS: ATTEND Internal Medicine | DX: M51.27 Other intervertebral disc displacement, lumbosacral region (principal); M51.36 Other intervertebral disc degeneration, lumbar region ==

== ENCOUNTER → 2021-10-14 | Outpatient (CLI) | payer MEDICARE, OTHER ==
[~2021-10-14] MED LIST changes: +CIME200T4 PO; -GNP200TA4 PO
== END ==
LOC: M WUC 15:59
PROVIDERS: ATTEND Family Medicine
DX: R05.9 Cough, unspecified (principal)

== ENCOUNTER → 2023-03-10 | Outpatient (CLI) | payer MEDICARE, OTHER ==
[~2023-03-10] MED LIST changes: +E-Z-GAS II EFFERVESCENT PACKET (SODIUM BICARB./CITRIC ACID/SIMETHICONE) As Ordered ONE; +E-Z-HD 98% w/w 340GM SUSP BTL As Ordered ONE; +E-Z-PAQUE 96% w/w SUSP 176GM BTL As Ordered ONE
== END ==
LOC: M RAD 09:31
PROVIDERS: ATTEND Family Medicine
DX: K21.9 Gastro-esophageal reflux disease without esophagitis (principal); R19.4 Change in bowel habit

== ENCOUNTER → 2023-05-01 | Outpatient (CLI) | payer MEDICARE, OTHER ==
[~2023-05-01] MED LIST changes: -E-Z-GAS II EFFERVESCENT PACKET (SODIUM BICARB./CITRIC ACID/SIMETHICONE) As Ordered ONE; -E-Z-HD 98% w/w 340GM SUSP BTL As Ordered ONE; -E-Z-PAQUE 96% w/w SUSP 176GM BTL As Ordered ONE
== END ==
LOC: M WUC 13:22
PROVIDERS: ATTEND Nurse Practitioner Family
DX: M17.11 Unilateral primary osteoarthritis, right knee (principal); M11.261 Other chondrocalcinosis, right knee

== ENCOUNTER → 2023-06-19 | Outpatient (CLI) | payer MEDICARE, OTHER ==
[~2023-06-19] MED LIST changes: -CIME200T4 PO; +CIME200T40 PO
[2023-06-19 15:49] LABS: PLATELET COUNT, AUTOMATED 270 10^3/uL (150-450)
[2023-06-19 16:01] LABS: INR 1.1; PROTHROMBIN TIME 13.9 SECONDS (12.5-14.5)
[2023-06-19 16:02] LABS: PARTIAL THROMBOPLASTIN TIME 33.4 SECONDS (24.8-34.2)
== END ==
LOC: M PLALAB 12:30
PROVIDERS: ATTEND Physician Assistant Surgical
DX: Z01.818 Encounter for other preprocedural examination (principal)

== ENCOUNTER → 2024-03-01 | Outpatient (REF) | payer MEDICARE, OTHER ==
[2024-03-01 18:25] LABS: INR 1.09; PARTIAL THROMBOPLASTIN TIME 34.1 SECONDS (24.8-34.2); PROTHROMBIN TIME 13.8 SECONDS (12.5-14.5)
== END ==
LOC: M LAB REF 17:35
PROVIDERS: ATTEND Family Medicine
DX: Z01.812 Encounter for preprocedural laboratory examination (principal); Z79.01 Long term (current) use of anticoagulants

== ENCOUNTER → 2024-08-25 | Outpatient (CLI) | payer MEDICARE, OTHER ==
[2024-08-25 17:05] LABS: PLATELET COUNT, AUTOMATED 250 10^3/uL (150-450)
[2024-08-25 17:17] LABS: INR 1.03; PROTHROMBIN TIME 13.8 SECONDS (12.5-14.5)
== END ==
LOC: M PLALAB 14:42
PROVIDERS: ATTEND Physician Assistant Surgical
DX: Z01.818 Encounter for other preprocedural examination (principal)

== ENCOUNTER 2025-01-06 09:52 | Day surgery (SDC) | payer MEDICARE, OTHER ==
[~2025-01-06] VITALS: Ht 165.1 cm; Wt 77.5 kg
[~2025-01-06 09:52] MED LIST changes: +APAP325T4 PO; +BIOT1CAP2 PO; +FAMO1TAB11 PO
[2025-01-06] MEDS ORDERED: ATROPINE SULF 0.4 MG/ML 1 ML VIAL As Ordered ONE (11:08)
[2025-01-06] MEDS ORDERED: LIDOCAINE 2% 100 MG/5 ML SDV (FOR ANES.) As Ordered ONE (11:08)
[2025-01-06 11:14] VITALS: TEMP 98.4
[2025-01-06 11:41] VITALS: BP 121/69; O2SAT 96
== END 2025-01-06 11:41 | disposition home or self-care (01) ==
LOC: M OPP 09:52
PROVIDERS: ATTEND Surgery
DX: Z12.11 Encounter for screening for malignant neoplasm of colon (principal); K29.50 Unspecified chronic gastritis without bleeding; R10.13 Epigastric pain; Z88.0 Allergy status to penicillin; Z79.899 Other long term (current) drug therapy
CPT/HCPCS: 43239; 88305; G0121; J0461